=== PATIENT | female | born 1970 | race Asian ===

== ENCOUNTER → 2016-04-17 | Outpatient (CLI) | payer BC, OTHER | END | disposition home or self-care (01) | LOC: C.PAPS 14:02 | PROVIDERS: ATTEND Obstetrics & Gynecology | DX: Z01.419 Encounter for gynecological examination (general) (routine) without abnormal findings (principal) ==

== ENCOUNTER → 2016-07-23 | Outpatient (CLI) | payer BC ==
--- NOTE | 2016-07-24 16:38 | MAMMOGRAPHY REPORT ---
BILATERAL DIGITAL SCREENING MAMMOGRAM TOMOSYNTHESIS WITH CAD: 07/23/2016 CLINICAL HISTORY: Routine screening. Patient has no complaints. TECHNIQUE: Breast tomosynthesis in addition to standard 2D mammography was performed. Current study was also evaluated with a Computer Aided Detection (CAD) system. COMPARISON: Comparison is made to exams dated: 10/02/2014 mammogram and 09/05/2010 mammogram - [facility]. BREAST COMPOSITION: The tissue of both breasts is extremely dense, which lowers the sensitivity of m ammography. FINDINGS: There is a nodular 7 mm asymmetries seen posterior to the right nipple on the cc view only , for which spot compression tomosynthesis views and possible breast ultrasound are recommended for f urther evaluation. The remainder of both breasts are stable compared to prior exams, without suspicious masses, calcific ations, or areas of architectural distortion noted. Scattered bilateral benign-appearing calcificati ons are again noted. IMPRESSION: ACR BI-RADS CATEGORY 0: INCOMPLETE EVALUATION: NEED ADDITIONAL IMAGING EVALUATION Right breast asymmetry, for which additional imaging evaluation is recommended. The patient will be called to schedule an appointment. Approximately 10% of breast cancers are not detected with mammography. A negative mammographic report should not delay biopsy if a clinically suggestive mass is present. Donna Dangelo M.D. /:07/24/2016 16:33:54 Fire Claims Adjuster: Rachel WHITEHEAD)(Juan), [facility] letter sent: Addl Imaging 0 BI-RADS Code: ACR BI-RADS Category 0: Incomplete Evaluation: Need Additional Imaging Evaluation
== END | disposition home or self-care (01) ==
LOC: C.MAMM 15:22
PROVIDERS: ATTEND Obstetrics & Gynecology
DX: Z12.31 Encounter for screening mammogram for malignant neoplasm of breast (principal); N64.89 Other specified disorders of breast

== ENCOUNTER → 2016-08-05 | Outpatient (CLI) | payer BC ==
--- NOTE | 2016-08-05 13:05 | MAMMOGRAPHY REPORT ---
UNILATERAL RIGHT DIGITAL DIAGNOSTIC MAMMOGRAM TOMOSYNTHESIS AND TARGETED BILATERAL ULTRASOUND: 017 CLINICAL HISTORY: 46-year-old woman called back from screening mammography for a 6 cm nodular asymmet ry in the anterior subareolar right breast, only seen on the CC view. Patient has a history of prior surgical excision in the right breast, in which a periareolar incision is visible on the breast. TECHNIQUE: Spot compression right CC and MLO tomosynthesis images were obtained. COMPARISON: Comparison is made to exams dated: 07/23/2016 mammogram, 10/02/2014 mammogram, 09/05/2010 m ammogram, 04/22/2005 mammogram, and 06/04/2004 mammogram - [facility]. BREAST COMPOSITION: The tissue of the right breast is extremely dense, which lowers the sensitivity of mammography. FINDINGS: The additional spot compression CC views demonstrate persistence of a well circumscribed 6. 2 mm triangular nodular asymmetry in the anterior subareolar right breast. When comparing back to pr ior available mammograms, this appearance is similar to 10/02/2014 and 09/05/2010 exams suggesting it could represent normal tissue or postsurgical change. There is no associated architectural distorti on or suspicious microcalcification. Further evaluation with ultrasound was performed. Targeted ultrasound was performed in the periareolar and retroareolar right breast. Dense hypoechoic tissue is seen in the retroareolar and particularly 9:00 periareolar right breast without evidence o f a discrete solid mass. This hypoechoic tissue most likely represents scar tissue from prior surgic al excision. (The pathology from that surgical excision performed 06/24/2004 yielded a papilloma wit hout atypia) Additional sonographic evaluation was performed in the periareolar left breast for comparison purpose s. In the 3:00 left breast, 1 cm from the nipple, there are 2 adjacent hypoechoic solid-appearing ma sses with tubular anechoic structures leading to and from these masses, suggesting they represent int raductal masses. The larger measures 4.5 x 3.7 x 4.9 mm, and the smaller measures 3.2 mm. Another s imilar appearing possible intraductal mass is identified in the 4:00 periareolar left breast measurin g 4.0 x 3.6 mm, and there are 2 additional smaller similar appearing round hypoechoic solid masses in the 4:00 left breast, 2 cm from the nipple, measuring 2.4 and 3.6 mm. All of these masses in the le ft breast most likely represents papillomas or complicated cysts. Recommend biopsy of the largest 5 mm mass in the 3:00 left breast, 1 cm from the nipple. Pending benign pathology results, can follow the other similar appearing smaller masses in 6 months intervals to ensure stability. IMPRESSION: ACR BI-RADS CATEGORY 4: SUSPICIOUS, TARGETED ULTRASOUND ACR BI-RADS CATEGORY 4: SUSPICIO US 1. A 6 mm nodular asymmetry in the anterior subareolar right breast appears similar to prior mammogr ams dating back to 2010, and there is no suspicious sonographic correlate. There is hypoechoic tissu e which most likely represent scar tissue on ultrasound, given the prior history of papilloma excisio n. A short interval follow-up diagnostic right mammogram and possible repeat ultrasound is recommend ed to ensure stability in 6 months, given the slight increased conspicuity of this 6 mm nodular asymm etry. 2. Ultrasound-guided core biopsy is recommended for a 5 mm hypoechoic solid mass, possibly intraduct al, in the 3:00 left breast, 1 cm from the nipple. 3. Pending benign pathology results the other 4 smaller similar appearing masses in the left 3:00 an d 4:00 axes can be followed in 6 months. These results and recommendations were discussed with the patient at the time of the exam. Approximately 10% of breast cancers are not detected with mammography. A negative mammographic report should not delay biopsy if a clinically suggestive mass is present. Love Dumont M.D. ay/:08/05/2016 12:20:27 Installers Mechanical: Linette VILCHIS(Benjamin)(Juan), [facility] letter sent: Abnormal 4/5 BI-RADS Code: ACR BI-RADS Category 4: Suspicious Ultrasound BI-RADS: ACR BI-RADS Category 4: Suspici ous
== END | disposition home or self-care (01) ==
LOC: C.MAMM 09:58
PROVIDERS: ATTEND Obstetrics & Gynecology
DX: N64.9 Disorder of breast, unspecified (principal); N63 Unspecified lump in breast

== ENCOUNTER → 2016-08-13 | Outpatient (CLI) | payer BC ==
--- NOTE | 2016-08-13 09:13 | Discharge Instructions ---
Discharge Instructions Procedure Procedure Date: Aug 13, 2016. Reason for visit: Left Mass. Discharge Discharge Date: Aug 13, 2016. Discharge Diagnosis: status post breast biopsy Instructions Activity Recommendations: Additional Limitations (see below) Return to School/Work: no limitations Recommended Home Diet: No Limitations Provider Instructions: ACTIVITY RECOMMENDATIONS: * No lifting, pushing, pulling or exercising the affected side for three days. RETURN TO SCHOOL/WORK: * You may return to work/school after the procedure, but do not perform any strenuous activities for 24 to 48 hours. MEDICATIONS: * Tylenol (two 325 mg) every four to six hours if needed for mild pain (if not allergic to Tylenol). DIET: * Resume previous diet. SPECIAL CARE INSTRUCTIONS: * Keep biopsy site dry for 24 hours. May shower after 24 hours, but do not soak (bathe) incision. * May remove Tegaderm (plastic patch) tomorrow AFTER showering. * Leave the steri-strips on for one week. Allow the steri-strips to fall off by themselves. If not off after one week, you may remove them. You may place a Bandaid crosswise over the strips, if desired. * Apply ice 10 minutes on and 10 minutes off as needed. * Wear a bra at bedtime to sleep more comfortably for 2-3 days. * Your referring physician should have the results after approximately 5 to 7 business days. * Call for unusual bleeding, fever, drainage, etc or if you have any questions call during normal business hours or after hours call Dr Dangelo, [phone]. FOLLOW UP VISIT: Follow-up with Referring Physician as scheduled. Allergies Coded Allergies: No Known Allergies (Verified Allergy, Unknown, 02/21/03) Maia Mead Recommendations: Call your doctor if: * Temperature above 101 degrees * Pain not relieved by pain medicine ordered * There is increased drainage or redness from any incision * You have any unanswered questions or concerns. Your Doctors Instructions noted above were prepared by provider Donna Dangelo. Patient Signature Section: Patient Instructions Signature Page DeyviGeorgesSam Durga Patient (or Guardian) Signature/Date: I have read and understand the instructions given to me by my caregivers. Caregiver/RN/Doctor Signature/Date: The above-named patient and/or guardian has received patient instructions on this date. + Original Patient Signature Page (only) stays with chart. Please make copy for patient.
--- NOTE | 2016-08-13 13:48 | MAMMOGRAPHY REPORT ---
THIS REPORT HAS BEEN AMENDED. ULTRASOUND GUIDED BIOPSY LEFT BREAST: 08/13/2016 CLINICAL HISTORY: Left 3:00 breast mass. PATIENT CONSENT: The procedure, risks and benefits were discussed with the patient and informed writt en consent was obtained. A timeout was performed immediately prior to the procedure. PROCEDURE DESCRIPTION: With ultrasound guidance, aseptic technique, and lidocaine as the local anesth etic (1% lidocaine to anesthetize the skin and 1% lidocaine with epinephrine to anesthetize the deepe r tissues), the mass of concern in the left 3:00 breast, 1 cm from the nipple, was sampled 5 times wi th a 14-gauge Achieve biopsy needle. Immediately thereafter, with ultrasound guidance, aseptic techn ique, and lidocaine as the local anesthetic, a metallic localizer clip was placed centrally in the ma ss. Direct pressure was applied to the site immediately post procedure and hemostasis was achieved. Postprocedure unilateral mammograms were performed to confirm clip placement. The patient tolerated the procedure without complication. She was given wound care instructions. The specimens were sent to pathology for analysis. COMPARISON: Comparison is made to exams dated: 08/05/2016 ultrasound, 08/05/2016 mammogram, 07/23/2016 mammogram, 10/02/2014 mammogram, 09/05/2010 mammogram, and 04/22/2005 mammogram - [facility]. IMPRESSION: ULTRASOUND GUIDED BIOPSY Ultrasound guided core needle biopsy of the left 3:00 breast mass, with clip placement. The patient will receive pathology results from her referring provider. Pending benign pathology results, recomm end short interval follow-up diagnostic tomosynthesis mammograms and ultrasound of the left breast in 6 months to reevaluate other smaller similar-appearing masses in the left 3 and 4:00 breast. Donna Dangelo M.D. ah/:08/13/2016 09:16:27 Barrel Cleaner: Ramon WHITEHEAD)(Juan), [facility] AMENDMENT: 08/19/2016 Donna Dangelo M.D. The pathology from ultrasound guided biopsy of the left 3:00 breast mass was reviewed on 08/19/2016. The pathology shows a papillary proliferation with usual ductal hyperplasia, which is concordant with the imaging findings. 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 Recommend follow-up bilateral diagnostic tomosynthesis mammograms and ultrasound in 6 months t o confirm stability of the biopsied mass as well as the other smaller similar-appearing masses.
--- NOTE | 2016-08-13 13:48 | MAMMOGRAPHY REPORT ---
UNILATERAL LEFT DIGITAL DIAGNOSTIC MAMMOGRAM TOMOSYNTHESIS: 08/13/2016 CLINICAL HISTORY: Status post ultrasound guided biopsy of a left 3:00 breast mass. TECHNIQUE: Breast tomosynthesis in addition to standard 2D mammography was performed. Postprocedura l left CC and ML tomosynthesis images including C views were obtained. COMPARISON: Comparison is made to exams dated: 08/05/2016 ultrasound, 08/05/2016 mammogram, 07/23/2016 mammogram, 10/02/2014 mammogram, and 09/05/2010 mammogram - [facility]. BREAST COMPOSITION: The tissue of the left breast is extremely dense, which lowers the sensitivity o f mammography. FINDINGS: A new biopsy marker clip is seen in the left breast status post ultrasound guided biopsy o f the left 3:00 breast mass. No significant postbiopsy hematoma is seen. IMPRESSION: POST PROCEDURE IMAGING FOR MARKER PLACEMENT New biopsy marker clip status post ultrasound-guided biopsy of the left 3:00 breast mass, with clip p lacement. Pathology results are pending. Pending benign pathology results, recommend short interval follow-up ultrasound and possible diagnostic tomosynthesis mammograms of the left breast in 6 months to reevaluate other smaller similar-appearing masses in the left 3 and 4:00 breast. Approximately 10% of breast cancers are not detected with mammography. A negative mammographic report should not delay biopsy if a clinically suggestive mass is present. Donna Dangelo M.D. ah/:08/13/2016 09:24:02 Solutions Consultant: Ramon VILCHIS(Benjamin)(Juan), [facility] BI-RADS Code: Post Procedure Imaging For Marker Placement
== END | disposition home or self-care (01) ==
LOC: C.MAMM 08:19
PROVIDERS: ATTEND Obstetrics & Gynecology
DX: N60.22 Fibroadenosis of left breast (principal)

== ENCOUNTER → 2017-01-29 | Outpatient (CLI) | payer BC ==
--- NOTE | 2017-01-29 15:34 | MAMMOGRAPHY REPORT ---
BILATERAL DIGITAL DIAGNOSTIC MAMMOGRAM TOMOSYNTHESIS WITH CAD AND TARGETED LEFT ULTRASOUND: 7 CLINICAL HISTORY: The patient underwent ultrasound guided core needle biopsy of a left [address] mass August 2016, which yielded a benign papillary proliferation with usual ductal hyperplasia. She is also status post prior surgical excision of a papilloma in the right breast. TECHNIQUE: Breast tomosynthesis in addition to standard 2D mammography was performed. Current study was also evaluated with a Computer Aided Detection (CAD) system. Bilateral CC and MLO 2-D and tomosy nthesis images were obtained. COMPARISON: Comparison is made to exams dated: 08/13/2016 ultrasound biopsy, 08/13/2016 mammogram, 2016 ultrasound, 08/05/2016 mammogram, 07/23/2016 mammogram, and 10/02/2014 mammogram - [facility]. BREAST COMPOSITION: The tissue of both breasts is extremely dense, which lowers the sensitivity of m ammography. FINDINGS: There are no suspicious masses, calcifications, or areas of architectural distortion noted in either breast. There has been no significant interval change compared to prior exams. A biopsy marker clip is noted in the left 3:00 breast from prior benign biopsy. A linear scar marker denotes a scar on the right upper outer breast from prior benign surgical excision. Scattered benign-appeari ng right breast calcifications are not significantly changed. Targeted ultrasound was performed of the area of the previously seen left breast masses. In the left breast at 4:00 periareolar region, again noted is a round hypoechoic mass which measures 3 x 4 x 3 m m. This is stable compared to the July 2016 exam where the mass measured 4 x 4 millimeters. Additio tara, in the left breast at 4:00, 2 cm from the nipple, again noted are 2 adjacent hypoechoic masses which are also not significantly changed when accounting for slight differences in measurement techn ique, one measuring 4 x 3 x 3 mm and the other measuring 3 x 3 mm. The previously biopsied mass in t he left 3:00 breast, 1 cm from the nipple, is less prominent and no longer clearly mass like, however , a biopsy marker clip is seen at the site. The masses are probably benign and likely represent kali llomas, given the history of prior papillomas on biopsy. IMPRESSION: ACR-BI-RADS CATEGORY 3: PROBABLY BENIGN, TARGETED ULTRASOUND ACR-BI-RADS CATEGORY 3: PRO BABLY BENIGN 1. No mammographic evidence of malignancy in either breast. Recommend follow-up in one year. 2. Small similar-appearing hypoechoic masses in the left 3 and 4:00 breast are stable on ultrasound compared to the July 2016 exam. One of the masses was biopsied and yielded a papillary proliferation . 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 Recommend another short inter fritz follow-up targeted ultrasound of the left breast in 6 months to confirm longer stability. The patient has been verbally notified of the results. Approximately 10% of breast cancers are not detected with mammography. A negative mammographic report should not delay biopsy if a clinically suggestive mass is present. Donna Dangelo M.D. ah/:01/29/2017 12:40:57 Cryptozoologist: Ramon WHITEHEAD)(Juan), [facility] letter sent: Follow Up Recommended 3 BI-RADS Code: ACR-BI-RADS Category 3: Probably Benign Ultrasound BI-RADS: ACR-BI-RADS Category 3: Pr obably Benign
== END | disposition home or self-care (01) ==
LOC: C.MAMM 11:00
PROVIDERS: ATTEND Obstetrics & Gynecology
DX: N63.20 Unspecified lump in the left breast, unspecified quadrant (principal); D24.1 Benign neoplasm of right breast

== ENCOUNTER → 2017-05-07 | Outpatient (CLI) | payer BC | END | disposition home or self-care (01) | LOC: C.PAPS 13:49 | PROVIDERS: ATTEND Obstetrics & Gynecology | DX: Z01.419 Encounter for gynecological examination (general) (routine) without abnormal findings (principal) ==